=== PATIENT | female | born 1945 | race Caucasian/White ===

== ENCOUNTER 2016-11-30 01:24 | Observation (INO) | payer MEDICARE, BC ==
[~2016-11-30] VITALS: Ht 149.9 cm; Wt 63.5 kg
[2016-11-30] VITALS (11 sets, daily range): BP systolic 130–207; BP diastolic 60–89; PULSE 71–90; RESP 16–18; TEMP 97.3–98.3; O2SAT 94–98
[~2016-11-30 01:24] MED LIST: CALC.25 PO; CALTCHW4 PO; DIOV160T3 PO; LEVO75TA3 PO; PROT40TA PO
[2016-11-30] MEDS ORDERED: SODIUM CHLORIDE 0.9% FLUSH 5 ML FLUSH IVF PRN (04:00)
[2016-11-30] MEDS ORDERED: niCARdipine INJ 25 MG in SODIUM CHLOR 0.9% 250 ML INJ 250 ML IV SCH (04:00)
--- NOTE | 2016-11-30 04:12 | PD ---
HPI Chief Complaint: Dizziness Time Seen by Provider: 03:53 Travel History International Travel<30 days: No Contact w/Intl Traveler<30days: No Traveled to known affect area: No History of Present Illness HPI 70-year-old female arrives ER complaining of lightheadedness. She feels as though she is going to lose consciousness. She has felt this way for about 5 hours or so. Before going to bed tonight she felt quite nauseated as if she were going to vomit. Her blood pressure is quite elevated and she has been compliant with her Diovan. She has not lost consciousness. She has had no chest pain or shortness of breath. Earlier she had some vague visual changes without loss of vision or double vision or eye pain which have since resolved. No additional complaint is offered. She reports a history of anemia lightheadedness in the past. Etiology of the anemia was indeterminate however responded well to iron therapy. Colonoscopy and endoscopy were normal. The patient's had no blood in her urine or stool. PFSH Past Medical History Anemia: Yes (HX TRANSFUSIONS) Arthritis: No Autoimmune Disease: No Heart Rhythm Problems: No Cancer: No Cardiovascular Problems: Yes High Cholesterol: No Chest Pain: No Congestive Heart Failure: No Diabetes: No Diminished Hearing: No Endocrine: Yes Gastrointestinal Disorders: Yes GERD: Yes Genitourinary: No Hiatal Hernia: Yes Hypertension: Yes Immune Disorder: No Musculoskeletal: Yes Neurologic: No Psychiatric: No Reproductive: No Respiratory: No Immunizations Current: Yes Thyroid Disease: Yes Ulcer: No Past Surgical History Abdominal Surgery: Yes (gallbladder removal) Cardiac Surgery: No Cholecystectomy: Yes Ear Surgery: No Endocrine Surgery: Yes (thyroid and parathyroid surgery) Eye Surgery: Yes (bilateral cataract removal) Genitourinary Surgery: No Gynecologic Surgery: No Oral Surgery: No Thoracic Surgery: No Other Surgery: Yes (thyroid/parathyroidectomy) Social History Alcohol Use: No Tobacco Use: No Substance Use: No Allergies-Medications (Allergen,Severity, Reaction): Coded Allergies: Sulfa (Verified Allergy, Unknown, 11/30/16) Reported Meds & Prescriptions Reported Meds & Active Scripts Active Reported Calcitriol 0.25 Mcg Cap 0.25 Mcg PO DAILY Levothyroxine (Levothyroxine Sodium) 75 Mcg Tab 75 Mcg PO DAILY Famotidine 40 Mg Tab 40 Mg PO DAILY Pantoprazole (Pantoprazole Sodium) 40 Mg Tab 40 Mg PO DAILY Valsartan-Hydrochlorothiazide 80-12.5 Mg Tab 1 Tab PO DAILY Review of Systems Except as stated in HPI: all other systems reviewed are Neg Physical Exam Narrative GENERAL: Pleasant 70-year-old female no acute distress SKIN: Warm and dry. HEAD: Atraumatic. Normocephalic. EYES: Pupils equal and round. No scleral icterus. No injection or drainage. ENT: No nasal bleeding or discharge. Mucous membranes pink and moist. NECK: Trachea midline. No JVD. CARDIOVASCULAR: Regular rate and rhythm. No murmur appreciated. RESPIRATORY: No accessory muscle use. Clear to auscultation. Breath sounds equal bilaterally. GASTROINTESTINAL: Abdomen soft, non-tender, nondistended. Hepatic and splenic margins not palpable. MUSCULOSKELETAL: No obvious deformities. No clubbing. No cyanosis. No edema. NEUROLOGICAL: Awake and alert. No obvious cranial nerve deficits. Motor grossly within normal limits. Normal speech. PSYCHIATRIC: Appropriate mood and affect; insight and judgment normal. Data Data Last Documented VS Vital Signs Date Time Temp Pulse Resp B/P Pulse Ox O2 Delivery O2 Flow Rate FiO2 11/30/16 04:16 98 Room Air 11/30/16 04:11 72 18 149/80 11/30/16 01:26 98.1 Orders Electrocardiogram (11/30/16 03:57) Basic Metabolic Panel (Bmp) (11/30/16 03:57) Magnesium (Mg) (11/30/16 03:57) Troponin I (11/30/16 03:57) Urinalysis - C+S If Indicated (11/30/16 03:57) Chest, Single Ap (11/30/16 03:57) Ecg Monitoring (11/30/16 03:57) Iv Access Insert/Monitor (11/30/16 03:57) Oximetry (11/30/16 03:57) Sodium Chloride 0.9% Flush (Ns Flush) (11/30/16 04:00) Complete Blood Count With Diff (11/30/16 03:57) Nicardipine Inj (Cardene Inj) (11/30/16 04:00) Thyroid Stimulating Hormone (11/30/16 04:12) Admit Order (Ed Use Only) (11/30/16 06:16) Labs Laboratory Tests Test 11/30/16 04:18 White Blood Count 5.6 TH/MM3 Red Blood Count 4.77 MIL/MM3 Hemoglobin 11.9 GM/DL Hematocrit 37.0 % Mean Corpuscular Volume 77.7 FL Mean Corpuscular Hemoglobin 25.0 PG Mean Corpuscular Hemoglobin 32.1 % Concent Red Cell Distribution Width 15.1 % Platelet Count 231 TH/MM3 Mean Platelet Volume 10.1 FL Neutrophils (%) (Auto) 53.7 % Lymphocytes (%) (Auto) 32.6 % Monocytes (%) (Auto) 10.3 % Eosinophils (%) (Auto) 2.2 % Basophils (%) (Auto) 1.2 % Neutrophils # (Auto) 3.0 TH/MM3 Lymphocytes # (Auto) 1.8 TH/MM3 Monocytes # (Auto) 0.6 TH/MM3 Eosinophils # (Auto) 0.1 TH/MM3 Basophils # (Auto) 0.1 TH/MM3 CBC Comment DIFF FINAL Differential Comment Sodium Level 142 MEQ/L Potassium Level 3.6 MEQ/L Chloride Level 106 MEQ/L Carbon Dioxide Level 28.5 MEQ/L Anion Gap 8 MEQ/L Blood Urea Nitrogen 14 MG/DL Creatinine 0.70 MG/DL Estimat Glomerular Filtration 82 ML/MIN Rate Random Glucose 100 MG/DL Calcium Level 8.5 MG/DL Magnesium Level 2.2 MG/DL Troponin I 0.05 NG/ML MDM Medical Decision Making Medical Screen Exam Complete: Yes Emergency Medical Condition: Yes Medical Record Reviewed: Yes (EKG reveals sinus rhythm of 70 with normal axis and intervals and no splenic injury pattern.) Differential Diagnosis Arrhythmia, hypertension, thyroid related disorder, electrolyte imbalance, polypharmacy, infection Narrative Course CBC & BMP Diagram 11/30/16 04:18 Troponin 0.05 EKG reveals sinus rhythm with a rate of 70 and normal axis intervals Chest x-ray reveals no infiltrates Patient will be admitted for serial enzyme monitoring and for further investigation per discretion of the admitting service. Her blood pressure improved significantly without intervention here at 6:15 AM it was about 145/ 85. Persistent lightheadedness observed. No carotid bruit appreciable. Case discussed with Dr. Grider. She has had no chest pain or shortness of breath. Diagnosis Primary Impression: Lightheadedness Additional Impression: Elevated troponin I measurement Admitting Information Admitting Physician Requests: Admit Shaji Hull MD Nov 30, 2016 04:12
[2016-11-30] MEDS ORDERED: FAMO40TA PO (04:13)
[2016-11-30] MEDS ORDERED: PANT40TA3 PO (04:13)
[2016-11-30] MEDS ORDERED: VALS80TA2 PO (04:13)
[2016-11-30] MEDS ORDERED: LEVO75TA3 PO (04:14)
[2016-11-30] MEDS ORDERED: CALC0.25 PO (04:14)
[2016-11-30 04:40] LABS: BASOPHIL # 0.1 TH/MM3 (0-0.2); BASOPHIL % 1.2 % (0.0-2.0); EOSINOPHIL # 0.1 TH/MM3 (0-0.4); EOSINOPHIL % 2.2 % (0.0-4.0); HEMO FLAGS DIFF FINAL; LYMPH % 32.6 % (9.0-44.0); LYMPHOCYTE # 1.8 TH/MM3 (1.0-4.8); MEAN CELL VOLUME 77.7 FL (80.0-100.0); MEAN CORPUSCULAR HGB CONC 32.1 % (32.0-36.0); MONO % 10.3 % (0.0-8.0); NEUT % 53.7 % (16.0-70.0); PLATELET COUNT 231 TH/MM3 (150-450); RED BLOOD COUNT 4.77 MIL/MM3 (4.00-5.30); RED CELL DISTRIBUTION WIDTH 15.1 % (11.6-17.2); WHITE BLOOD COUNT 5.6 TH/MM3 (4.0-11.0)
--- NOTE | 2016-11-30 05:04 | RADRPT ---
EXAM DATE/TIME: 11/30/2016 04:24 [facility] COMPARISON: No previous studies available for comparison. INDICATIONS : Pt having chest pain and palpitations. MEDICAL HISTORY : Hypertension. SURGICAL HISTORY : Cholecystectomy. ENCOUNTER: Initial ACUITY: 1 day PAIN SCORE: 8/10 LOCATION: Bilateral chest FINDINGS: A single view of the chest demonstrates the lungs to be symmetrically aerated without evidence of mas s, infiltrate or effusion. The cardiomediastinal contours are unremarkable. Osseous structures are intact. CONCLUSION: The lungs are clear. Mert Burks MD on November 30, 2016 at 5:03 Board Certified Radiologist. This report was verified electronically.
[2016-11-30 05:13] LABS: BICARBONATE 28.5 MEQ/L (21.0-32.0); MAGNESIUM 2.2 MG/DL (1.5-2.5); POTASSIUM 3.6 MEQ/L (3.5-5.1)
[2016-11-30] MEDS ORDERED: ACETAMINOPHEN/HYDROcodone 325 MG/5 MG TAB PO PRN (06:30)
[2016-11-30] MEDS ORDERED: SODIUM CHLORIDE 0.9% FLUSH 5 ML FLUSH FLUSH PRN (06:30)
[2016-11-30] MEDS ORDERED: SODIUM CHLOR 0.9% 1000 ML INJ 1,000 ML IV ONE (06:30)
[2016-11-30] MEDS ORDERED: MORPHINE SULFATE 4 MG/ML INJ IV PRN (06:30)
[2016-11-30] MEDS ORDERED: BISACODYL 10 MG SUPP PR PRN (06:30)
[2016-11-30] MEDS ORDERED: ONDANSETRON HCL 4 MG/2 ML VIAL IVP PRN (06:30)
[2016-11-30] MEDS ORDERED: ACETAMINOPHEN 325 MG TAB PO PRN (06:30)
[2016-11-30] MEDS ORDERED: cloNIDine HCL 0.1 MG TAB PO PRN (07:45)
[2016-11-30] MEDS ORDERED: ENALAPRILAT 1.25 MG/ML VIAL IV PRN (07:45)
[2016-11-30] MEDS: LEVOTHYROXINE SODIUM 75 MCG TAB PO SCH (08:42)
[2016-11-30] MEDS: SODIUM CHLORIDE 0.9% FLUSH 5 ML FLUSH FLUSH SCH ×2 (09:00→20:56)
[2016-11-30] MEDS: HYDROCHLOROTHIAZIDE 12.5 MG CAP PO SCH (09:24)
[2016-11-30] MEDS: CALCITRIOL 0.25 MCG CAP PO SCH (09:24)
[2016-11-30] MEDS: PANTOPRAZOLE SOD 40 MG DELAYED RELEASE TAB PO SCH (09:24)
[2016-11-30] MEDS: VALSARTAN 80 MG TAB PO SCH (09:25)
--- NOTE | 2016-11-30 11:13 | HHI.HP ---
[facility] Service [facility] Primary Care Physician Non-Staff Admission Diagnosis Lightheadeness, Tn 0.05, HTN Diagnoses: Chief Complaint: Lightheadedness Travel History International Travel<30 Days: No Contact w/Intl Traveler <30 Da: No Traveled to Known Affected Are: No History of Present Illness 70-year-old female with past medical history of GERD, hypothyroidism, HTN, KAROL who presented with lightheadedness. The patient states for the past 10 days she 's been having episodes of lightheadedness and dizziness. She states the episodes acutely worsened yesterday evening. She began having associated blurred vision since she came in for evaluation. She states the lightheadedness is worse whenever she tries to ambulate. She feels like she is going to pass out, no LOC. She denies any sensation like the room is spinning. She has associated nausea. She denies any numbness, tingling, chest pain, shortness breath, fevers, ears ringing, swallowing difficulties, difficulty concentrating, speech difficulties, weakness. Her blood pressure is noted to be elevated in the ED. She states she recently had an appointment with [facility] and her blood pressure was actually low there. Review of Systems Other 10 point review of systems performed and was negative except as stated in the history of present illness Past Family Social History Past Medical History GERD Hypothyroidism Low calcium Hypertension History of iron deficiency anemia Past Surgical History Cholecystectomy Cataract surgery EGD/colonoscopy Reported Medications Calcitriol 0.25 Mcg Cap 0.25 Mcg PO DAILY Levothyroxine (Levothyroxine Sodium) 75 Mcg Tab 75 Mcg PO DAILY Famotidine 40 Mg Tab 40 Mg PO DAILY Pantoprazole (Pantoprazole Sodium) 40 Mg Tab 40 Mg PO DAILY Valsartan-Hydrochlorothiazide 80-12.5 Mg Tab 1 Tab PO DAILY Allergies: Coded Allergies: Sulfa (Verified Allergy, Unknown, 11/30/16) Active Ordered Medications Current Medications Medications (Trade) Dose Ordered Sig/Steve Route Start Time Stop Time Status Last Admin (NS 1000 ml Inj) 1,000 ml @ 100 mls/hr Q10H ONCE IV 11/30/16 06:30 11/30/16 16:29 11/30/16 07:09 (NS Flush) 2 ml UNSCH PRN FLUSH 11/30/16 06:30 (NS Flush) 2 ml BID FLUSH 11/30/16 09:00 (Zofran Inj) 4 mg Q6H PRN IVP 11/30/16 06:30 (Dulcolax Supp) 10 mg DAILY PRN ID 11/30/16 06:30 (Tylenol) 650 mg Q6H PRN PO 11/30/16 06:30 ([place] 5-325 Mg) 1 tab Q4H PRN PO 11/30/16 06:30 (Morphine Inj) 1 mg Q3H PRN IV 11/30/16 06:30 (Synthroid) 75 mcg DAILY@06 PO 11/30/16 06:00 11/30/16 08:42 (Protonix) 40 mg DAILY PO 11/30/16 09:00 11/30/16 09:24 (Vasotec Inj) 1.25 mg Q6H PRN IV 11/30/16 07:45 (Catapres) 0.1 mg Q6H PRN PO 11/30/16 07:45 (Rocaltrol) 0.25 mcg DAILY PO 11/30/16 09:00 11/30/16 09:24 (Diovan) 80 mg DAILY PO 11/30/16 09:00 11/30/16 09:25 (Microzide) 12.5 mg DAILY PO 11/30/16 09:00 11/30/16 09:24 Family History Reviewed, No Family history pertinent to current chief complaint Social History Occasionally drinks wine Denies any tobacco use Lives at home with her Physical Exam Vital Signs Vital Signs Date Time Temp Pulse Resp B/P Pulse Ox O2 Delivery O2 Flow Rate FiO2 11/30/16 09:18 71 18 160/69 97 Nasal Cannula 2 11/30/16 04:16 98 Room Air 11/30/16 04:11 72 18 149/80 98 Room Air 11/30/16 01:26 98.1 90 16 207/89 96 Physical Exam GENERAL: Well-developed well-nourished. In no acute distress. SKIN: Warm and dry. No lesions noted. HEENT: Normocephalic. Pupils equal and round. Mucous membranes pink and moist. CARDIOVASCULAR: Regular rate and rhythm. No murmur appreciated. RESPIRATORY: No accessory muscle use. Clear to auscultation. Breath sounds equal bilaterally. GASTROINTESTINAL: Abdomen soft, non-tender, nondistended. Bowel sounds x4. MUSCULOSKELETAL: No obvious deformities. No clubbing or cyanosis. No edema. NEUROLOGICAL: Awake and alert. No focal neurological deficits. Moves upper and lower extremities spontaneously. Normal speech. No pronator drift. Strength 5/ 5. PSYCHIATRIC: Appropriate mood and affect; insight and judgment normal. Laboratory Laboratory Tests Test 11/30/16 11/30/16 04:18 09:35 White Blood Count 5.6 Red Blood Count 4.77 Hemoglobin 11.9 Hematocrit 37.0 Mean Corpuscular Volume 77.7 Mean Corpuscular Hemoglobin 25.0 Mean Corpuscular Hemoglobin 32.1 Concent Red Cell Distribution Width 15.1 Platelet Count 231 Mean Platelet Volume 10.1 Neutrophils (%) (Auto) 53.7 Lymphocytes (%) (Auto) 32.6 Monocytes (%) (Auto) 10.3 Eosinophils (%) (Auto) 2.2 Basophils (%) (Auto) 1.2 Neutrophils # (Auto) 3.0 Lymphocytes # (Auto) 1.8 Monocytes # (Auto) 0.6 Eosinophils # (Auto) 0.1 Basophils # (Auto) 0.1 CBC Comment DIFF FINAL Differential Comment Sodium Level 142 Potassium Level 3.6 Chloride Level 106 Carbon Dioxide Level 28.5 Anion Gap 8 Blood Urea Nitrogen 14 Creatinine 0.70 Estimat Glomerular Filtration 82 Rate Random Glucose 100 Calcium Level 8.5 Magnesium Level 2.2 Troponin I 0.05 0.05 Thyroid Stimulating Hormone 2.810 3rd Gen Result Diagram: 11/30/1641711/30/16417 Assessment and Plan Problem List: (1) Lightheadedness ICD Code: R42 Status: Acute (2) GERD (gastroesophageal reflux disease) ICD Code: K21.9 Status: Chronic (3) Hypothyroid ICD Code: E03.9 Status: Chronic (4) Hypocalcemia ICD Code: E83.51 Status: Chronic (5) HTN (hypertension) ICD Code: I10 Status: Acute Assessment and Plan 70-year-old female with past medical history of GERD, hypothyroidism, HTN, KAROL who presented with lightheadedness Lightheadedness/presyncope: EKG reviewed, NSR. Troponin within normal limits 2. TSH within normal limits. Rule out TIA/CVA; check head CT, carotid ultrasound, echocardiogram. Start aspirin. Check orthostatic vitals. PT eval. Neuro checks. Telemetry monitoring. Accelerated hypertension: BP at admission 207/89, currently 160/69. Continue home valsartan and HCTZ. Clonidine and Vasotec as needed. Monitor and adjust medications as needed. Stop IVF. Other chronic medical conditions include GERD, hypothyroidism, low calcium: Stable at this time and will continue home medications as indicated. DVT prophylaxis: SCDs. Written by Kings Weathers, acting as scribe for Dr. Medrano on 11/30/16 at 11:12. The documentation accurately reflects the work performed [id number] by me on at 1112 Discussed Condition With Patient, ED RN Problem Qualifiers (1) GERD (gastroesophageal reflux disease): Qualified Code: K21.9 - Gastroesophageal reflux disease, esophagitis presence not specified (2) Hypothyroid: Qualified Code: E03.9 - Hypothyroidism, unspecified type (3) HTN (hypertension): Qualified Code: I10 - Essential hypertension Kings Weathers Nov 30, 2016 11:13 Dioni Medrano MD Nov 30, 2016 15:57
--- NOTE | 2016-11-30 12:07 | RADRPT ---
EXAM DATE/TIME: 11/30/2016 11:22 [facility] COMPARISON: No previous studies available for comparison. INDICATIONS : Lightheaded; dizziness. RADIATION DOSE: 32.98 CTDIvol (mGy) MEDICAL HISTORY : Hypertension. SURGICAL HISTORY : Thyroid/parathyroid. ENCOUNTER: Initial ACUITY: 1 day PAIN SCALE: 4/10 LOCATION: cranial TECHNIQUE: Multiple contiguous axial images were obtained of the head. Using automated exposure control and adjustment of the mA and/or kV according to patient size, radiation dose was kept as low as reasonably achievable to obtain optimal diagnostic quality images. FINDINGS: CEREBRUM: The ventricles are normal for age. No evidence of midline shift, mass lesion, hemorrha ge or acute infarction. No extra-axial fluid collections are seen. POSTERIOR FOSSA: The cerebellum and brainstem are intact. The 4th ventricle is midline. The cer ebellopontine angle is unremarkable. EXTRACRANIAL: The visualized portion of the orbits is intact. SKULL: The calvaria is intact. No evidence of skull fracture. CONCLUSION: Negative for an acute process. Last Daley MD FACR on November 30, 2016 at 12:05 Board Certified Radiologist. This report was verified electronically.
--- NOTE | 2016-11-30 14:28 | EKG ---
Date Performed: 11/30/2016 Time Performed: 03:59:22 PTAGE: 70 years EKG: Sinus rhythm NONSPECIFIC T-WAVE ABNORMALITY BORDERLINE ECG PREVIOUS TRACING : 01/29/2016 12.26 Since previous tracing, no significant change noted DOCTOR: Gal Hull Interpretating Date/Time 11/30/2016 14:27:09
--- NOTE | 2016-11-30 18:12 | RADRPT ---
EXAM DATE/TIME: 11/30/2016 15:28 [facility] COMPARISON: CT BRAIN W/O CONTRAST, November 30, 2016, 11:22. INDICATIONS : Cerebrovascular accident. MEDICAL HISTORY : Hypertension. Gastroesophageal reflux disease. Hernia, hiatal. Thyroid disease. Anemia. SURGICAL HISTORY : Cholecystectomy. Bilateral cataract removed. Thyroid and parathyroid surge ry. Blood transfusions. ENCOUNTER: Initial ACUITY: 2 days PAIN SCORE: 0/10 LOCATION: Bilateral neck PEAK SYSTOLIC VELOCITIES (cm/sec): ICA/CCA RATIO: Right: 0.8 Left: 1.0 ICA: Right: 98 Left: 102 CCA: Right: 115 Left: 106 ECA: Right: 61 Left: 62 VERTEBRAL: Right: 49 antegrade Left: 71 antegrade Elevated flow velocities and ICA/CCA ratios have been found to correlate with increased degrees of vessel stenosis, calculated as percentage of diameter relative to a normal segment of distal ICA/CCA FINDINGS: RIGHT CAROTID: No significant stenosis is visualized. The waveforms are within normal limits. LEFT CAROTID: No significant stenosis is visualized. The waveforms are within normal limits. Min imal calcific plaquing at the bulb VERTEBRAL ARTERIES: Antegrade flow is seen in both vertebral arteries. MISCELLANEOUS: None. CONCLUSION: Minimal calcific plaquing left carotid bulb. No evidence of anatomic or physiologic s tenosis Heron Killian MD on November 30, 2016 at 18:09 Board Certified Radiologist. This report was verified electronically.
--- NOTE | 2016-11-30 19:55 | EKG ---
Date Performed: 11/30/2016 Time Performed: 10:59:59 PTAGE: 70 years EKG: Sinus rhythm NONSPECIFIC T-WAVE ABNORMALITY BORDERLINE ECG INTERPRETATION BASED ON A DEFAULT AGE OF 40 YEARS NO PREVIOUS TRACING Since previous tracing, no significant change noted DOCTOR: Gal Hull Interpretating Date/Time 11/30/2016 19:53:42
[2016-11-30 21:35] LABS: BLOOD, URINE SMALL (NEG); COMMENT (UR) CULT NOT INDICATED; CULTURE IF INDICATED CULT NOT INDICATED; GLUCOSE,URINE NEG (NEG); KETONE, URINE NEG (NEG); NITRITE,URINE NEG (NEG); PH, URINE 5.5 (5.0-8.5); SQUAMOUS EPITHELIAL CELL URINE 1 /hpf (0-5); URINE COLOR LIGHT-YELLOW (YELLW/STRAW)
[2016-12-01 04:13] VITALS: BP 146/63; PULSE 79; RESP 20; TEMP 97.9; O2SAT 96
[2016-12-01] MEDS: LEVOTHYROXINE SODIUM 75 MCG TAB PO SCH (05:27)
[2016-12-01 06:49] LABS: AUTOMATED NEUTROPHIL # 2.9 TH/MM3 (1.8-7.7); BASOPHIL # 0.1 TH/MM3 (0-0.2); BASOPHIL % 0.9 % (0.0-2.0); EOSINOPHIL # 0.1 TH/MM3 (0-0.4); EOSINOPHIL % 2.4 % (0.0-4.0); HEMATOCRIT 37.4 % (35.0-46.0); LYMPH % 34.2 % (9.0-44.0); LYMPHOCYTE # 1.9 TH/MM3 (1.0-4.8); MEAN CELL VOLUME 78.5 FL (80.0-100.0); MEAN CORPUSCULAR HEMOGLOBIN 24.9 PG (27.0-34.0); MEAN CORPUSCULAR HGB CONC 31.7 % (32.0-36.0); MONO % 9.3 % (0.0-8.0); NEUT % 53.2 % (16.0-70.0); PLATELET COUNT 224 TH/MM3 (150-450); RED BLOOD COUNT 4.76 MIL/MM3 (4.00-5.30); RED CELL DISTRIBUTION WIDTH 14.9 % (11.6-17.2); WHITE BLOOD COUNT 5.4 TH/MM3 (4.0-11.0)
[2016-12-01 07:09] LABS: ALKALINE PHOSPHATASE 101 U/L (45-117); ALT (GPT) 24 U/L (10-53); ANION GAP 10 MEQ/L (5-15); AST (GOT) 14 U/L (15-37); BICARBONATE 28.4 MEQ/L (21.0-32.0); BLOOD UREA NITROGEN 11 MG/DL (7-18); CHLORIDE 104 MEQ/L (98-107); GLOMERULAR FILTRATION RATE 84 ML/MIN (>89); HDL CHOLESTEROL 60.5 MG/DL (40.0-60.0); LDL CHOLESTEROL 133 MG/DL (0-99); POTASSIUM 3.7 MEQ/L (3.5-5.1); SODIUM (NA) 142 MEQ/L (136-145); TOTAL BILIRUBIN ADULT 0.5 MG/DL (0.2-1.0)
[2016-12-01 07:31] LABS: HEMO FLAGS AUTO DIFF
[2016-12-01 08:31] VITALS: O2SAT 96
[2016-12-01] MEDS ORDERED: AMLO5 PO (08:36)
--- NOTE | 2016-12-01 08:37 | HHI.DCPOC ---
Discharge Care Plan Diagnosis: (1) HTN (hypertension) Your Health Problems Are: Difficulty with ADL Exercise Tolerance Goals to Promote Your Health * To prevent worsening of your condition and complications * To maintain your health at the optimal level Directions to Meet Your Goals Take your medications as prescribed Follow your dietary instruction Follow activity as directed Keep your appointments as scheduled Take your immunizations and boosters as scheduled If your symptoms worsen call your PCP, if no PCP go to Urgent Care Center or Emergency Room Smoking is Dangerous to Your Health. Avoid second hand smoke Call the 24-hour hour crisis hotline for domestic abuse at Dioni Medrano MD Dec 01, 2016 08:37
[2016-12-01] MEDS: PANTOPRAZOLE SOD 40 MG DELAYED RELEASE TAB PO SCH (08:45)
[2016-12-01] MEDS: HYDROCHLOROTHIAZIDE 12.5 MG CAP PO SCH (08:45)
[2016-12-01] MEDS: CALCITRIOL 0.25 MCG CAP PO SCH (08:45)
[2016-12-01] MEDS: VALSARTAN 80 MG TAB PO SCH (08:45)
[2016-12-01] MEDS: SODIUM CHLORIDE 0.9% FLUSH 5 ML FLUSH FLUSH SCH (08:46)
[2016-12-01 08:49] VITALS: BP 146/67; PULSE 82; RESP 18; TEMP 97.7; O2SAT 96
[2016-12-01] MEDS ORDERED: ASPIRIN 81 MG CHEW TAB PO SCH (09:00)
[2016-12-01 09:01] LABS: PLATELET ESTIMATE SMEAR NORMAL (NORMAL); PLATELET MORPHOLOGY NORMAL (NORMAL); SCAN/DIFF AUTO DIFF CONFIRMED
--- NOTE | 2016-12-01 09:41 | HHI.PR ---
Subjective Remarks Follow-up for lightheadedness. The patient reports that her lightheadedness and dizziness have resolved. She's been able to ambulate to the restroom with no difficulties and worked with PT yesterday. She doesn't check her BP at home. She does not have a PCP in the area, plans to establish with one as soon as possible. She is asking to go home today. She would like to do her echocardiogram as outpatient. Objective Vitals Vital Signs Date Time Temp Pulse Resp B/P Pulse Ox O2 Delivery O2 Flow Rate FiO2 12/01/16 08:49 97.7 82 18 146/67 96 12/01/16 08:31 96 21 12/01/16 04:13 97.9 79 20 146/63 96 11/30/16 23:53 97.3 80 18 147/65 98 11/30/16 20:00 97 11/30/16 20:00 85 11/30/16 19:51 98.3 85 16 153/61 97 11/30/16 16:45 138/66 157/86 145/72 11/30/16 16:00 98.0 75 17 130/60 94 11/30/16 15:00 74 11/30/16 14:21 79 18 159/77 97 Nasal Cannula 2 Result Diagram: 12/01/16 0615 12/01/16 0615 Imaging Last Impressions Chest X-Ray 11/30/16 0357 Signed Impressions: Service Date/Time: Wednesday, November 30, 2016 04:24 - CONCLUSION: The lungs are clear. Mert Burks MD Head CT 11/30/16 0000 Signed Impressions: Service Date/Time: Wednesday, November 30, 2016 11:22 - CONCLUSION: Negative for an acute process. Last Daley MD FACR Carotid Artery Ultrasound 11/30/16 0000 Signed Impressions: Service Date/Time: Wednesday, November 30, 2016 15:28 - CONCLUSION: Minimal calcific plaquing left carotid bulb. No evidence of anatomic or physiologic stenosis Heron Killian MD Objective Remarks GENERAL: Well-developed well-nourished. In no acute distress. SKIN: Warm and dry. No lesions noted. HEENT: Normocephalic. Pupils equal and round. Mucous membranes pink and moist. CARDIOVASCULAR: Regular rate and rhythm. No murmur appreciated. RESPIRATORY: No accessory muscle use. Clear to auscultation. Breath sounds equal bilaterally. GASTROINTESTINAL: Abdomen soft, non-tender, nondistended. Bowel sounds x4. MUSCULOSKELETAL: No obvious deformities. No clubbing or cyanosis. No edema. NEUROLOGICAL: Awake and alert. No focal neurological deficits. Moves upper and lower extremities spontaneously. Normal speech. PSYCHIATRIC: Appropriate mood and affect; insight and judgment normal. A/P Problem List: (1) Lightheadedness ICD Code: R42 Status: Resolved (2) GERD (gastroesophageal reflux disease) ICD Code: K21.9 Status: Chronic (3) Hypothyroid ICD Code: E03.9 Status: Chronic (4) Hypocalcemia ICD Code: E83.51 Status: Chronic (5) HTN (hypertension) ICD Code: I10 Status: Acute Assessment and Plan 70-year-old female with past medical history of GERD, hypothyroidism, HTN, KAROL who presented with lightheadedness Lightheadedness/presyncope: EKG reviewed, NSR. Troponin within normal limits 3. TSH within normal limits. Head CT with no acute process. Carotid ultrasound with no significant stenosis. Non-orthostatic. Symptoms improved with better BP control, we'll optimize, see below. PT consulted, no restrictions. Symptoms resolved. Outpatient echocardiogram. Neuro checks. Telemetry monitoring. Accelerated hypertension: BP at admission 207/89. Much better controlled overnight on home meds, but systolic BP is still not optimally controlled, 140s. Continue home valsartan and HCTZ. Clonidine and Vasotec as needed. Start amlodipine. Emphasized outpatient PCP follow-up. Other chronic medical conditions include GERD, hypothyroidism, low calcium: Stable at this time and will continue home medications as indicated. DVT prophylaxis: SCDs. Written by Kings Weathers, acting as scribe for Dr. Medrano on 12/01/16 at 08:27. The documentation accurately reflects the work performed [id number] by me on at 0827 Discharge Planning Discharge patient to home Condition on discharge: Improved Heart healthy Diet as tolerated Regular activity Rx written: Amlodipine, prescription for echocardiogram Follow-up with primary care physician Problem Qualifiers (1) GERD (gastroesophageal reflux disease): Qualified Code: K21.9 - Gastroesophageal reflux disease, esophagitis presence not specified (2) Hypothyroid: Qualified Code: E03.9 - Hypothyroidism, unspecified type (3) HTN (hypertension): Qualified Code: I10 - Essential hypertension Kings Weathers Dec 01, 2016 09:40 Dioni Medrano MD Dec 01, 2016 15:00
[2016-12-01 14:12] LABS: HEMOGLOBIN A1b 0.8 %; HEMOGLOBIN Ao 86.6 %; HEMOGLOBIN F 0.8 %; HEMOGLOBIN LA1C 1.3 %; HEMOGLOBIN P3 3.4 %
[2016-12-01] MEDS ORDERED: amLODIPine BESYLATE 5 MG TAB PO SCH (16:00)
== END 2016-12-01 12:17 | disposition home or self-care (01) ==
LOC: NEPC 01:24 → NEDA 06:18 → NEDH 11:18 → NEPFCDU 15:17
PROVIDERS: ADMIT Internal Medicine; ATTEND Internal Medicine
DX: R42 Dizziness and giddiness (principal); I10 Essential (primary) hypertension; E83.51 Hypocalcemia; R74.8 Abnormal levels of other serum enzymes; R94.31 Abnormal electrocardiogram [ECG] [EKG]; E03.9 Hypothyroidism, unspecified; D64.9 Anemia, unspecified; K21.9 Gastro-esophageal reflux disease without esophagitis
CPT/HCPCS: 70450; 71010; 80048; 80053; 80061; 81001; 83036; 83735; 84443; 84484; 85025; 93005; 93880; 97162; 99285; G0378; G8987; G8988; J7030

== ENCOUNTER 2017-01-26 17:06 | Emergency (ER) | payer MEDICARE, BC ==
[~2017-01-26] VITALS: Ht 149.9 cm; Wt 60.0 kg
[~2017-01-26 17:06] MED LIST changes: +AMLO5 PO; -CALC.25 PO; +CALC0.25 PO; -CALTCHW4 PO; -DIOV160T3 PO; +FAMO40TA PO; +PANT40TA3 PO; -PROT40TA PO; +VALS80TA2 PO
[2017-01-26 17:16] VITALS: BP 146/66; PULSE 96; RESP 17; TEMP 98.2; O2SAT 99
[2017-01-26 17:30] VITALS: BP 122/58; PULSE 82; RESP 16; O2SAT 99
--- NOTE | 2017-01-26 17:34 | PD ---
HPI Chief Complaint: Abdominal Pain Time Seen by Provider: 17:19 Travel History International Travel<30 days: No Contact w/Intl Traveler<30days: No Traveled to known affect area: No History of Present Illness HPI This is a 71-year-old female who has a history of iron deficiency anemia who presents to the emergency department with a low hemoglobin of 6 that her doctor called her about 2 days ago. She says she wasn't feeling any symptoms so she didn't come to the hospital but then today she started to feel dizzy, weak, short of breath and exhausted with exertion, constant, moderate severity, worsening throughout the day so she decided to come to the emergency department. She denies any blood in her stools or dark stools. She says in the past they've never seen any blood in her stools. She did have an endoscopy here at [facility] last year which demonstrated some gastritis and esophagitis. When she was back in [place] they started her on iron transfusions and she said she was doing quite well and her blood work as of October was normal. [facility] Past Medical History Anemia: Yes (HX TRANSFUSIONS) Arthritis: No Autoimmune Disease: No Blood Disorders: No Heart Rhythm Problems: No Cancer: No Cardiovascular Problems: Yes High Cholesterol: No Chest Pain: No Congestive Heart Failure: No Diabetes: No Diminished Hearing: No Endocrine: Yes Gastrointestinal Disorders: Yes GERD: Yes Genitourinary: No Hiatal Hernia: Yes Hypertension: Yes Immune Disorder: No Musculoskeletal: Yes Neurologic: No Psychiatric: No Reproductive: No Respiratory: No Immunizations Current: Yes Thyroid Disease: Yes Ulcer: No ?: Not Past Surgical History Abdominal Surgery: Yes (gallbladder removal) Cardiac Surgery: No Cholecystectomy: Yes Ear Surgery: No Endocrine Surgery: Yes (thyroid and parathyroid surgery) Eye Surgery: Yes (bilateral cataract removal) Genitourinary Surgery: No Gynecologic Surgery: No Oral Surgery: No Thoracic Surgery: No Other Surgery: Yes (thyroid/parathyroidectomy) Social History Alcohol Use: No Tobacco Use: No Substance Use: No Allergies-Medications (Allergen,Severity, Reaction): Coded Allergies: Sulfa (Verified Allergy, Unknown, 01/26/17) Reported Meds & Prescriptions Reported Meds & Active Scripts Active Norvasc (Amlodipine Besylate) 5 Mg Tab 2.5 Mg PO DAILY@1600 Reported Calcitriol 0.25 Mcg Cap 0.25 Mcg PO DAILY Levothyroxine (Levothyroxine Sodium) 75 Mcg Tab 75 Mcg PO DAILY Famotidine 40 Mg Tab 40 Mg PO HS Pantoprazole (Pantoprazole Sodium) 40 Mg Tab 40 Mg PO DAILY Valsartan-Hydrochlorothiazide 80-12.5 Mg Tab 1 Tab PO DAILY Review of Systems Except as stated in HPI: all other systems reviewed are Neg Physical Exam Narrative GENERAL:Well appearing, no acute distress SKIN: Warm and dry. HEAD: Atraumatic. Normocephalic. EYES: Pupils equal and round. No injection or drainage. ENT: Moist mucous membranes NECK: Trachea midline. CARDIOVASCULAR: Regular rate and rhythm. No murmur appreciated. RESPIRATORY: Clear to auscultation. Breath sounds equal bilaterally. GASTROINTESTINAL: Abdomen soft, non-tender, nondistended. MUSCULOSKELETAL: No obvious deformities. NEUROLOGICAL: Awake and alert. No obvious cranial nerve deficits. Moving all extremities. PSYCHIATRIC: Appropriate mood and affect; insight and judgment normal. Data Data Last Documented VS Vital Signs Date Time Temp Pulse Resp B/P Pulse Ox O2 Delivery O2 Flow Rate FiO2 01/26/17 17:30 82 16 122/58 99 Room Air 01/26/17 17:16 98.2 Orders Complete Blood Count With Diff (01/26/17 17:20) Basic Metabolic Panel (Bmp) (01/26/17 17:20) Prothrombin Time / Inr (Pt) (01/26/17 17:20) Act Partial Throm Time (Ptt) (01/26/17 17:20) Type And Screen (01/26/17 17:20) Labs Laboratory Tests Test 01/26/17 17:40 White Blood Count 6.6 TH/MM3 Red Blood Count 4.04 MIL/MM3 Hemoglobin 9.6 GM/DL Hematocrit 29.5 % Mean Corpuscular Volume 73.1 FL Mean Corpuscular Hemoglobin 23.9 PG Mean Corpuscular Hemoglobin 32.6 % Concent Red Cell Distribution Width 16.5 % Platelet Count 280 TH/MM3 Mean Platelet Volume 9.1 FL Neutrophils (%) (Auto) 57.3 % Lymphocytes (%) (Auto) 30.7 % Monocytes (%) (Auto) 9.9 % Eosinophils (%) (Auto) 1.2 % Basophils (%) (Auto) 0.9 % Neutrophils # (Auto) 3.8 TH/MM3 Lymphocytes # (Auto) 2.0 TH/MM3 Monocytes # (Auto) 0.7 TH/MM3 Eosinophils # (Auto) 0.1 TH/MM3 Basophils # (Auto) 0.1 TH/MM3 CBC Comment AUTO DIFF Differential Comment AUTO DIFF CONFIRMED Ovalocytes 1+ Prothrombin Time 10.5 SEC Prothromb Time International 1.0 RATIO Ratio Activated Partial 25.7 SEC Thromboplast Time Sodium Level 140 MEQ/L Potassium Level 3.9 MEQ/L Chloride Level 102 MEQ/L Carbon Dioxide Level 29.0 MEQ/L Anion Gap 9 MEQ/L Blood Urea Nitrogen 14 MG/DL Creatinine 0.80 MG/DL Estimat Glomerular Filtration 71 ML/MIN Rate Random Glucose 95 MG/DL Calcium Level 8.1 MG/DL Blood Type O POSITIVE Antibody Screen NEGATIVE MDM Medical Decision Making Medical Screen Exam Complete: Yes Emergency Medical Condition: Yes Interpretation(s) Afebrile, mild hypertension Hemoglobin is 9.6 down from 11.9 in November Electrolytes are reassuring Differential Diagnosis GI bleed, iron deficiency anemia, anemia of chronic disease Narrative Course This is a 71-year-old female who was sent in by her primary care physician for hemoglobin of 6. She reports that she's been feeling dizzy and short of breath. She is placed in a monitor and an IV was established. Labs demonstrate a hemoglobin of 9.6. She was Hemoccult negative. She has required iron infusions in the past. She doesn't want to be admitted to the hospital and would prefer to go home and follow-up with her primary care physician which I think is very reasonable given her history. Patient will be discharged home. [facility] Point of Care Internal Pos. & Neg. Controls: Passed Fecal Specimen Occult Blood: Negative Diagnosis Primary Impression: Anemia Qualified Code: D50.9 - Iron deficiency anemia, unspecified iron deficiency anemia type Patient Instructions: General Instructions Additional Instructions: If you develop severe chest pain, shortness of breath, sweating, lightheadedness , dizziness or difficulty breathing return to the emergency department immediately. Followup with your primary care physician in 2-3 days if your symptoms are not resolved. Med/Other Pt SpecificInfo: No Change to Meds Disposition: 01 DISCHARGE HOME Condition: Stable Sandy Walker MD Jan 26, 2017 17:33
[2017-01-26 18:05] LABS: AUTOMATED NEUTROPHIL # 3.8 TH/MM3 (1.8-7.7); BASOPHIL # 0.1 TH/MM3 (0-0.2); BASOPHIL % 0.9 % (0.0-2.0); EOSINOPHIL # 0.1 TH/MM3 (0-0.4); EOSINOPHIL % 1.2 % (0.0-4.0); HEMATOCRIT 29.5 % (35.0-46.0); LYMPH % 30.7 % (9.0-44.0); MEAN CELL VOLUME 73.1 FL (80.0-100.0); MEAN CORPUSCULAR HEMOGLOBIN 23.9 PG (27.0-34.0); MEAN CORPUSCULAR HGB CONC 32.6 % (32.0-36.0); MONO % 9.9 % (0.0-8.0); NEUT % 57.3 % (16.0-70.0); PLATELET COUNT 280 TH/MM3 (150-450); RED BLOOD COUNT 4.04 MIL/MM3 (4.00-5.30); RED CELL DISTRIBUTION WIDTH 16.5 % (11.6-17.2); WHITE BLOOD COUNT 6.6 TH/MM3 (4.0-11.0)
[2017-01-26 18:06] LABS: HEMO FLAGS AUTO DIFF
[2017-01-26 18:14] LABS: APTT (PATIENT) 25.7 SEC (24.3-30.1); PROTHROMBIN TIME - PATIENT 10.5 SEC (9.8-11.6)
[2017-01-26 18:40] LABS: OVALOCYTES 1+ (NORMAL); SCAN/DIFF AUTO DIFF CONFIRMED
[2017-01-26 18:43] LABS: POTASSIUM 3.9 MEQ/L (3.5-5.1)
== END 2017-01-26 20:42 | disposition home or self-care (01) ==
LOC: NEPA 17:06
DX: D50.9 Iron deficiency anemia, unspecified (principal); R42 Dizziness and giddiness; R06.02 Shortness of breath
CPT/HCPCS: 80048; 85025; 85610; 85730; 86850; 86900; 86901; 99284